=== PATIENT | female | born 1965 | race Caucasian/White ===

== ENCOUNTER 2021-10-11 16:01 | Emergency (ER) | payer OTHER ==
[~2021-10-11] VITALS: Ht 167.6 cm; Wt 86.5 kg
[2021-10-11 16:01] VITALS: BP 133/92
[2021-10-11] MEDS ORDERED: AMOX1TAB11 PO (18:17)
[2021-10-11] MEDS ORDERED: AMOXICILLIN/K CLAV 875/125MG TABLET. ONE (18:26)
--- NOTE | 2021-10-11 18:26 | EKG ---
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
[2021-10-11] MEDS ORDERED: ONDANSETRON ODT 4 MG TAB.RAPDIS PO ONE (18:30)
[2021-10-11] MEDS ORDERED: AMOXICILLIN/K CLAV 875/125MG TABLET. PO ONE (18:30)
[2021-10-11] MEDS ORDERED: ONDANSETRON 4MG ODT 4TABLET STARTPACK. PO ONE (18:30)
--- NOTE | 2021-10-11 18:31 | PHYS DOC ---
General Adult EDM: Chief Complaint: EARACHE/EAR PAIN HPI: HPI: 56-year-old female presents with visual change. The patient has felt a little bit congested for couple days. She was driving today and she started to feel mildly dizzy and nauseated. She has no history of vertigo, but she describes the feeling as vertigo. She went home and did not get better so she came in the emergency room. Patient has not taken any medications. She describes the dizziness as things seeming intermittently overworked or moving back and forth. It is not a spinning sensation. She is nauseated. She has no other complaints this time. Review of Systems: Review of Systems: Constitutional: Denies fever or chills Eyes: Denies change in visual acuity HENT: Denies nasal congestion or sore throat Respiratory: Denies cough or shortness of breath Cardiovascular: Denies chest pain or edema GI: Denies abdominal pain, nausea, vomiting, bloody stools or diarrhea : Denies dysuria Musculoskeletal: Denies back pain or joint pain Integument: Denies rash Neurologic: Dizziness. Denies headache, focal weakness or sensory changes Endocrine: Denies polyuria or polydipsia Lymphatic: Denies swollen glands Psychiatric: Denies depression or anxiety Current Medications: Current Meds: Current Medications Medications (Trade) Dose Ordered Sig/Addison Start Time Stop Time Status Last Admin Dose Admin Amoxicillin/ Clavulanate Potassium (Augmentin 875/ 125mg) 1 tab STK-MED ONCE 10/11/21 18:26 10/11/21 18:26 DC Ondansetron HCl (Starter Pack - Zofran Odt) 1 startpack 1X ONCE 10/11/21 18:30 10/11/21 18:31 Ondansetron HCl (Zofran Odt) 4 mg 1X ONCE 10/11/21 18:30 10/11/21 18:31 Allergies: Allergies: Allergies Coded Allergies Type Severity Reaction Last Updated Verified No Known Drug Allergies 10/11/21 No Physical Exam: PE: Constitutional: Well developed, well nourished, no acute distress, non-toxic appearance. [] HENT: Normocephalic, atraumatic, bilateral external ears normal, oropharynx moist, no oral exudates, nose normal. Right tympanic membrane erythematous and bulging. Eyes: PERRLA, EOMI, conjunctiva normal, no discharge. [] Neck: Normal range of motion, no tenderness, supple, no stridor. [] Cardiovascular:Heart rate regular rhythm, no murmur [] Lungs & Thorax: Bilateral breath sounds clear to auscultation [] Abdomen: Bowel sounds normal, soft, no tenderness, no masses, no pulsatile masses. [] Skin: Warm, dry, no erythema, no rash. [] Back: No tenderness, no CVA tenderness. [] Extremities: No tenderness, no cyanosis, no clubbing, ROM intact, no edema. [] Neurologic: Alert and oriented X 3, normal motor function, normal sensory function, no focal deficits noted. [] Psychologic: Affect normal, judgement normal, mood normal. [] EKG: EKG: [] Radiology/Procedures: Radiology/Procedures: [] Heart Score: C/O Chest Pain: N/A Risk Factors: Risk Factors: DM, Current or recent (<one month) smoker, HTN, HLP, family history of CAD, obesity. Risk Scores: Score 0 - 3: 2.5% MACE over next 6 weeks - Discharge Home Score 4 - 6: 20.3% MACE over next 6 weeks - Admit for Clinical Observation Score 7 - 10: 72.7% MACE over next 6 weeks - Early Invasive Strategies Course & Med Decision Making: Course & Med Decision Making Pertinent Labs and Imaging studies reviewed. (See chart for details) Patient appears to have a right otitis media. I will treat her with Zofran and Augmentin. I will discharge her with prescriptions for the same. She is stable for discharge at this time. [] Yasir Disclaimer: Yasir Disclaimer: This electronic medical record was generated, in whole or in part, using a voice recognition dictation system. Departure Departure: Impression: Primary Impression: Otitis media, right Qualified Codes: H66.001 - Acute suppurative otitis media without spontaneous rupture of ear drum, right ear Disposition: HOME / SELF CARE / HOMELESS Condition: STABLE Patient Instructions: Otitis Media, Adult, [id number] Scripts Amoxicillin/Potassium Clav (AMOX TR-K CLV 875-125 MG TAB) 1 Each Tablet 1 TAB PO BID for ear infection for 10 Days, #20 TAB Prov: OLGA ESTRELLA DO 10/11/21 OLGA ESTRELLA DO Oct 11, 2021 18:31
== END 2021-10-11 18:30 | disposition home or self-care (01) ==
LOC: ER 16:01
DX: H66.001 Acute suppurative otitis media without spontaneous rupture of ear drum, right ear (principal)
CPT/HCPCS: 93005; 99283; Q0162